=== PATIENT | male | born 1950 | race Caucasian/White ===

== ENCOUNTER 2020-02-11 15:56 | Emergency (ER) | payer OTHER ==
[~2020-02-11] VITALS: Ht 175.3 cm; Wt 113.4 kg
[2020-02-11 16:26] LABS: ABSOLUTE NEUTROPHILS 12.4 thou/uL (1.4-8.2); BASOPHILS 0.5 % (0.0-2.0); EOSINOPHILS 0.4 % (0.0-3.0); HEMATOCRIT 51.5 % (42.0-52.0); HEMOGLOBIN 17.5 gm/dL (14.0-18.0); LYMPHOCYTES 9.3 % (24.0-44.0); MCH 30.8 pg (26.0-34.0); MCHC 34.1 g/dL (28.0-37.0); MCV 90.5 fL (80.0-100.0); MONOCYTES 8.7 % (1.0-8.0); PLATELET COUNT 332 thou/uL (150-400); POLYS 81.1 % (36.0-66.0); RBC 5.69 mil/uL (4.50-6.00); RDW 13.5 % (10.5-14.5); WBC 15.3 thou/uL (4.0-11.0)
[2020-02-11 16:32] LABS: CALCIUM 9.4 mg/dL (8.5-10.1); CREATININE 0.9 mg/dL (0.7-1.3); POTASSIUM 3.5 mmol/L (3.5-5.1)
[2020-02-11 16:38] LABS: ALBUMIN 3.8 g/dL (3.4-5.0); TOTAL BILIRUBIN 1.5 mg/dL (0.2-1.0); TOTAL PROTEIN 7.9 g/dL (6.4-8.2)
[2020-02-11 16:59] LABS: MAGNESIUM 2.4 mg/dL (1.8-2.4); TROPONIN-I <0.06 ng/mL (<0.06)
[2020-02-11 18:47] LABS: URINE BILIRUBIN NEGATIVE (Negative); URINE BLOOD NEGATIVE (Negative); URINE CLARITY CLEAR; URINE COLOR YELLOW; URINE GLUCOSE-RANDOM* NEGATIVE (Negative); URINE KETONES TRACE (Negative); URINE LEUKOCYTES-REFLEX NEGATIVE (Negative); URINE NITRITE-REFLEX NEGATIVE (Negative); URINE PROTEIN (DIPSTICK) NEGATIVE (Negative); URINE UROBILINOGEN 0.2 E.U./dl (0.2-1.0)
[2020-02-11] MEDS ORDERED: APAP W/CODEINE1 TA2 PO (19:37)
[2020-02-11] MEDS ORDERED: NORFLEX100 MG PO (19:37)
[2020-02-11] MEDS ORDERED: ONDANSETRON ODT8 MG PO (19:37)
[2020-02-11 20:47] VITALS: BP 214/111
--- NOTE | 2020-02-12 07:31 | EKG ---
[facility] [place] [address] ELECTROCARDIOGRAM REPORT Name: MODESTA FORREST Room #: [facility].#: [id number] Admission: 02/11/20 Attend Phys: Discharge: 02/11/20 Date of : 52 Report #: [id number] THIS REPORT FOR: cc: Danielito Chacon MD, Logan F. MD Santiago, Patrick MD [facility] ~ THIS REPORT FOR: //name// [facility] ED Test Date: 2020-02-11 Test Time: 16:47:39 Pat Name: MODESTA FORREST Department: Room: Gender: Professional Architect: [facility] : 1950 Requested By: Devon Vargas Order Number: [id number] MD: Avi Hathaway Measurements Intervals Frederica Rate: 64 P: -6 OH: 193 QRS: -56 QRSD: 140 T: 35 QT: 479 QTc: 495 Interpretive Statements Sinus rhythm LVH with IVCD, LAD and secondary repol abnrm Borderline prolonged QT interval No previous ECG available for comparison Electronically Signed On 02-12-2020 7:31:24 RESIDENTIAL DRIVER by Avi Hathaway [email or web address] <ELECTRONICALLY SIGNED> By: Avi Hathaway MD, FACC 02/12/20 0731 [id number] 164 Avi Hathaway MD, [facility] /EPI
== END 2020-02-11 20:47 | disposition home or self-care (01) ==
LOC: ER 15:56
PROVIDERS: Emergency Medicine
DX: D49.1 Neoplasm of unspecified behavior of respiratory system (principal); R11.2 Nausea with vomiting, unspecified; M54.2 Cervicalgia; I10 Essential (primary) hypertension; Z88.5 Allergy status to narcotic agent